=== PATIENT | male | born 1980 | race Caucasian/White ===

== ENCOUNTER 2025-05-22 09:02 | Outpatient (CLI) | payer SELFPAY ==
--- NOTE | 2025-05-22 09:11 | CT_ITS ---
WS: [id number] CT NECK WITH CONTRAST HISTORY: Left-sided jaw pain. Palpable area LEFT neck. TECHNIQUE: Contiguous 2 mm axial images are performed through the neck with intravenous contrast. Sagittal and coronal reformats are also submitted. All CT scans at [facility] use at least one of these dose optimization techniques: automated exposure control; mA and/or kV adjustment per patient size (includes targeted exams where dose is matched to clinical indication); or iterative reconstruction. CONTRAST: CONTRAST: Omnipaque 350; 100 mL IV. DLP: 200.55 mGy.cm COMPARISON: None. Palpable area along the LEFT face is marked with a superficial BB. Mass is at the level of the LEFT mandibular angle. Mass is adjacent to the LEFT masseter muscle but by a fat plane. There is a well-circumscribed very superficial mass measuring 9 x 14 mm corresponding to the palpable abnormality. This is a very superficial mass with minimal if any enhancement. There is no adjacent inflammation. No additional similar mass. Nasopharynx, oropharynx, hypopharynx and larynx are unremarkable. No soft tissue masses or abnormal enhancement. Torus tubarius and fossa of Rosenmuller and parapharyngeal fat are normal. No significant lymphadenopathy is identified. Thyroid gland and salivary glands are normally enhancing with no masses. No osseous abnormalities. Visualized portions of the skull base demonstrate no abnormalities. Orbits and globes are within normal limits. No soft tissue masses. Small mucous retention cyst in the RIGHT maxillary sinus. Lung apices are clear. CT/CT neck w con* [id number] IMPRESSION: 1. Palpable area over the LEFT mandibular angle corresponds to a well-circumsc ribed mass measuring 9 x 14 mm. This is most likely a benign sebaceous cyst. No inflammatory changes adjacent to the cyst. 2. No cervical chain lymphadenopathy. 3. No neck mass identified.
[2025-05-22] MEDS: iohexol 350 mg/mL 500 mL Btl (per mL) IV (09:36)
== END 2025-05-22 09:03 | disposition home or self-care (01) ==
LOC: RAD 09:05
PROVIDERS: PCP Otolaryngology; Visit Provider Otolaryngology
DX: D37.030 Neoplasm of uncertain behavior of the parotid salivary glands (principal); R22.0 Localized swelling, mass and lump, head
CPT/HCPCS: 70491